=== PATIENT | male | born 1945 | race Caucasian/White ===

== ENCOUNTER 2019-05-26 18:53 | Inpatient (IN) | payer OTHER ==
[~2019-05-26] VITALS: Ht 177.8 cm; Wt 109.8 kg
--- NOTE | 2019-05-26 19:19 | NUR ---
Pt [facility] to [facility] tx [facility]. C/o cp this am on L side of chest and causing sob. Trop of 1.1 and repeat trop of 1.4 noted by [facility]. Pt tx into our care. Pt state extensive med hx in past, including mi w/ stent placement, dm, and arteriosclerotic disease. Pt States mild cp at this time and presents to ed w/ nitro past applied via [facility]. All monitoring applied. Vss. Ekg accomplished. Pa at bedside for assessment.
[2019-05-26] MEDS ORDERED: PANT20TA3 PO (19:22)
[2019-05-26] MEDS ORDERED: PANT40TA5 PO (19:22)
[2019-05-26] MEDS ORDERED: CLOP75TA PO (19:48)
[2019-05-26] MEDS ORDERED: ASPI-496 PO (19:48)
[2019-05-26] MEDS ORDERED: BRIM5DRO3 EACHEYE (19:48)
[2019-05-26] MEDS ORDERED: DICL100G25 TP (19:48)
[2019-05-26] MEDS ORDERED: ALBU0.63 NEB (19:48)
[2019-05-26] MEDS ORDERED: CARV6.252 PO (19:48)
[2019-05-26] MEDS ORDERED: DORZ10DR26 OP (19:48)
[2019-05-26] MEDS ORDERED: CHOL1CRY3 PO (19:48)
[2019-05-26] MEDS ORDERED: [UNRECOGNIZED DRUG - OTHER] (19:48)
[2019-05-26] MEDS ORDERED: AMLO10TA8 PO (19:48)
[2019-05-26] MEDS ORDERED: DEXT1DRO7 OP (19:48)
[2019-05-26] MEDS ORDERED: CYAN500L4 PO (19:48)
[2019-05-26] MEDS ORDERED: KETOROLAC OPTH OP (19:49)
[2019-05-26] MEDS ORDERED: [UNRECOGNIZED DRUG - CODE] PO (19:49)
[2019-05-26] MEDS ORDERED: MAGN420T PO (19:49)
[2019-05-26] MEDS ORDERED: LOSA1TAB19 PO (19:49)
[2019-05-26] MEDS ORDERED: FINA5TAB4 PO (19:49)
[2019-05-26] MEDS ORDERED: METH500T7 PO (19:49)
[2019-05-26] MEDS ORDERED: INSU100V8 SQ (19:49)
[2019-05-26] MEDS ORDERED: FENO145T32 PO (19:49)
[2019-05-26] MEDS ORDERED: METF500T17 PO (19:49)
[2019-05-26] MEDS ORDERED: EZET10TA70 PO (19:49)
[2019-05-26] MEDS ORDERED: PREG225C PO (19:53)
[2019-05-26] MEDS ORDERED: NITR1PAT24 TD (19:53)
[2019-05-26] MEDS ORDERED: ROPI1TAB2 PO (19:53)
[2019-05-26] MEDS ORDERED: SEMA1PEN INJ (19:53)
[2019-05-26] MEDS ORDERED: HEPARIN 25,000 UNITS/500ML PMX 500 ML IV PRN ×2 (20:00)
[2019-05-26] MEDS ORDERED: HEPARIN 5,000 UNITS/ML, 1ML IV PRN ×2 (20:00)
[2019-05-26] MEDS ORDERED: HEPARIN 5,000 UNITS/ML, 1ML IV ONE ×2 (20:00)
--- NOTE | 2019-05-26 20:26 | NUR ---
TROP 0.319
[2019-05-26 20:27] LABS: TROPONIN I 0.319 ng/mL (0.000-0.045)
[2019-05-26] MEDS ORDERED: HEPARIN 25,000 UNITS/500ML PMX 500 ML ONE (20:27)
[2019-05-26] MEDS ORDERED: HEPARIN 5,000 UNITS/ML, 1ML ONE (20:27)
[2019-05-26] MEDS ORDERED: ACETAMINOPHEN 325 MG TABLET PO PRN (22:00)
[2019-05-26] MEDS ORDERED: ONDANSETRON 2MG/ML, 2ML IVPush PRN (22:00)
[2019-05-26] MEDS ORDERED: hydrALAzine 20 MG/ML, 1ML IVPush PRN (22:00)
[2019-05-26] MEDS ORDERED: morphine SULFATE 10 MG/ML, 1ML IVPush PRN (22:00)
[2019-05-26 22:12] LABS: HEMOGLOBIN A1C 7.2 % (4.2-6.3)
[2019-05-26 22:24] VITALS: BP 150/82
[2019-05-26] MEDS ORDERED: ALBUTEROL SULFATE 2.5 MG/3 ML NPPB PRN (23:30)
[2019-05-26] MEDS: CARVEDILOL 6.25 MG TABLET PO SCH (23:59)
[2019-05-26] MEDS: ROPINIROLE 1MG TABLET PO SCH (23:59)
[2019-05-26] MEDS: EZETIMIBE 10 MG TABLET PO SCH (23:59)
[2019-05-26] MEDS: METHOCARBAMOL 500 MG TABLET PO SCH (23:59)
[2019-05-27] MEDS: INSULIN GLARGINE 100 UNITS/ML, PEN SQ-INSULIN SCH ×2 (00:02→21:06)
[2019-05-27 01:22] VITALS: BP 147/84
[2019-05-27 02:43] LABS: BASOPHILS # (AUTO) 0.04 x10^3/uL (0-0.1); BASOPHILS % (AUTO) 1 % (0-1); EOSINOPHILS # (AUTO) 0.25 x10^3/uL (0-0.4); EOSINOPHILS % (AUTO) 5 % (1-7); LYMPHOCYTES # (AUTO) 2.02 x10^3/uL (1-3.4); LYMPHOCYTES % (AUTO) 42 % (22-44); MD NO; MEAN CORPUSCULAR HEMOGLOBIN 31.8 pg (27.5-34.5); MEAN CORPUSCULAR HGB CONC 33.2 g/dL (33.2-36.2); MEAN CORPUSCULAR VOLUME 95.9 fL (81-97); MONOCYTES # (AUTO) 0.32 x10^3/uL (0.2-0.8); MONOCYTES % (AUTO) 7 % (2-9); NEUTROPHILS # (AUTO) 2.24 x10^3/uL (1.8-6.8); NEUTROPHILS % (AUTO) 46 % (42-75); PLATELET COUNT 149 x10^3/uL (130-400); RED BLOOD COUNT 4.25 x10^6/uL (4.38-5.82); RED CELL DISTRIBUTION WIDTH 15.3 % (9.4-14.8)
[2019-05-27 02:56] LABS: ALBUMIN 3.3 g/dL (3.4-5.0); ANION GAP 7 mmol/L (5-15); CALCIUM 9.2 mg/dL (8.5-10.1); CHLORIDE 113 mmol/L (98-107); CHOLESTEROL, TOTAL 173 mg/dL (140-239)
[2019-05-27 03:02] LABS: ALANINE AMINOTRANSFERASE 23 U/L (12-78); ALKALINE PHOSPHATASE 62 U/L (45-117); BILIRUBIN,TOTAL 0.3 mg/dL (0.2-1.0); CREATININE 1.17 mg/dL (0.7-1.3); HDL CHOL % 25 % (26-37); HDL CHOLESTEROL (DIRECT) 43 mg/dL (40-60); LDL CHOLESTEROL,CALCULATED 103 mg/dL (54-169); LDL/HDL RATIO 2.4 (0.5-3.0); TOTAL PROTEIN 6.5 g/dL (6.4-8.2); TRIGLYCERIDES 134 mg/dL (50-200); TROPONIN I 0.362 ng/mL (0.000-0.045); VLDL CHOLESTEROL 27 mg/dL (0-25)
[2019-05-27] MEDS: INSULIN LISPRO 100 UNITS/ML, PEN SQ-INSULIN SCH ×4 (07:00→21:00)
[2019-05-27 08:43] VITALS: BP 148/83
[2019-05-27] MEDS: METHOCARBAMOL 500 MG TABLET PO SCH ×4 (08:47→21:07)
[2019-05-27] MEDS: HYDROCHLOROTHIAZIDE 12.5 MG CAPSULE PO SCH (08:47)
[2019-05-27] MEDS: FENOFIBRATE 145 MG TABLET PO SCH (08:47)
[2019-05-27] MEDS: PREGABALIN 75 MG CAPSULE PO SCH (08:47)
[2019-05-27] MEDS: ASPIRIN 81 MG TABLET EC PO SCH (08:47)
[2019-05-27] MEDS: FINASTERIDE 5 MG TABLET PO SCH (08:48)
[2019-05-27] MEDS: CLOPIDOGREL 75 MG TABLET PO SCH (08:48)
[2019-05-27] MEDS: CARVEDILOL 6.25 MG TABLET PO SCH ×2 (08:48→21:00)
[2019-05-27] MEDS: PANTOPRAZOLE 20MG TABLET PO SCH (08:48)
[2019-05-27] MEDS: AMLODIPINE 10 MG TAB PO SCH (08:48)
[2019-05-27] MEDS: LOSARTAN 50MG TABLET PO SCH (08:48)
[2019-05-27] MEDS: DORZOLAMIDE OPHTH 2%, 10ML OP SCH ×3 (08:48→21:06)
[2019-05-27 08:51] LABS: TROPONIN I 0.313 ng/mL (0.000-0.045)
[2019-05-27] MEDS: NITROGLYCERIN 0.4 MG/HR PATCH TD SCH (09:00)
[2019-05-27] MEDS ORDERED: REGADENOSON 0.4 MG/5 ML SYRINGE ONE (10:16)
[2019-05-27 14:54] VITALS: BP 126/81
[2019-05-27 20:04] VITALS: BP 141/85
[2019-05-27] MEDS: EZETIMIBE 10 MG TABLET PO SCH (21:07)
[2019-05-27] MEDS: ROPINIROLE 1MG TABLET PO SCH (21:07)
[2019-05-27] MEDS: HEPARIN 5,000 UNITS/ML, 1ML SQ SCH (21:07)
[2019-05-28] MEDS ORDERED: FLU VACC QS2019-20 36MOS UP/PF 0.5 ML IM-VACC ONE (02:30)
[2019-05-28 03:02] VITALS: BP 120/81
[2019-05-28] MEDS: HEPARIN 5,000 UNITS/ML, 1ML SQ SCH ×3 (05:42→20:47)
[2019-05-28] MEDS: METHOCARBAMOL 500 MG TABLET PO SCH ×4 (05:42→20:46)
[2019-05-28 07:49] VITALS: BP 139/77
[2019-05-28] MEDS: INSULIN LISPRO 100 UNITS/ML, PEN SQ-INSULIN SCH ×4 (08:51→20:55)
[2019-05-28] MEDS: PANTOPRAZOLE 20MG TABLET PO SCH (08:52)
[2019-05-28] MEDS: FENOFIBRATE 145 MG TABLET PO SCH (08:52)
[2019-05-28] MEDS: ASPIRIN 81 MG TABLET EC PO SCH (08:52)
[2019-05-28] MEDS: DORZOLAMIDE OPHTH 2%, 10ML OP SCH ×2 (08:52→20:47)
[2019-05-28] MEDS: HYDROCHLOROTHIAZIDE 12.5 MG CAPSULE PO SCH (08:52)
[2019-05-28] MEDS: PREGABALIN 75 MG CAPSULE PO SCH ×2 (08:52→20:46)
[2019-05-28] MEDS: AMLODIPINE 10 MG TAB PO SCH (08:53)
[2019-05-28] MEDS: CLOPIDOGREL 75 MG TABLET PO SCH (08:53)
[2019-05-28] MEDS: LOSARTAN 50MG TABLET PO SCH (08:53)
[2019-05-28] MEDS: NITROGLYCERIN 0.4 MG/HR PATCH TD SCH (08:58)
[2019-05-28] MEDS: CARVEDILOL 6.25 MG TABLET PO SCH ×2 (08:59→20:46)
[2019-05-28] MEDS: FINASTERIDE 5 MG TABLET PO SCH (09:55)
[2019-05-28] MEDS ORDERED: SODIUM CHLORIDE 0.9% 1,000 ML IV SCH (11:00)
[2019-05-28 14:00] VITALS: BP 119/65
[2019-05-28 18:48] VITALS: BP 125/81
[2019-05-28] MEDS: ROPINIROLE 1MG TABLET PO SCH (20:45)
[2019-05-28] MEDS: EZETIMIBE 10 MG TABLET PO SCH (20:46)
[2019-05-28] MEDS: INSULIN GLARGINE 100 UNITS/ML, PEN SQ-INSULIN SCH (21:01)
[2019-05-29 01:40] VITALS: BP 144/91
[2019-05-29 02:00] VITALS: BP 150/107
[2019-05-29] MEDS: HEPARIN 5,000 UNITS/ML, 1ML SQ SCH ×3 (05:49→20:42)
[2019-05-29] MEDS: METHOCARBAMOL 500 MG TABLET PO SCH ×4 (05:49→20:42)
[2019-05-29 06:55] VITALS: BP 135/84
[2019-05-29] MEDS: INSULIN LISPRO 100 UNITS/ML, PEN SQ-INSULIN SCH ×4 (07:00→20:59)
[2019-05-29] MEDS: AMLODIPINE 10 MG TAB PO SCH (07:25)
[2019-05-29] MEDS: CARVEDILOL 6.25 MG TABLET PO SCH ×2 (07:26→20:42)
[2019-05-29] MEDS ORDERED: MIDAZOLAM 1 MG/ML, 5ML ONE (12:54)
[2019-05-29] MEDS ORDERED: TICAGRELOR 90 MG TABLET ONE (12:55)
[2019-05-29] MEDS ORDERED: BIVALIRUDIN 250 MG ONE ×2 (12:55→13:47)
[2019-05-29] MEDS ORDERED: LIDOCAINE 2%, 20ML ONE (12:55)
[2019-05-29] MEDS ORDERED: FENTANYL PF 100 MCG/2ML ONE (12:55)
[2019-05-29] MEDS: LOSARTAN 50MG TABLET PO SCH (14:00)
[2019-05-29] MEDS: PANTOPRAZOLE 20MG TABLET PO SCH (14:00)
[2019-05-29] MEDS: CLOPIDOGREL 75 MG TABLET PO SCH (14:00)
[2019-05-29] MEDS ORDERED: CLOPIDOGREL 300 MG TABLET ONE (14:06)
[2019-05-29] MEDS: FENOFIBRATE 145 MG TABLET PO SCH (14:58)
[2019-05-29] MEDS: ASPIRIN 81 MG TABLET EC PO SCH (14:58)
[2019-05-29] MEDS: HYDROCHLOROTHIAZIDE 12.5 MG CAPSULE PO SCH (14:59)
[2019-05-29 15:05] VITALS: BP 134/70
[2019-05-29] MEDS: DORZOLAMIDE OPHTH 2%, 10ML OP SCH ×2 (15:13→20:58)
[2019-05-29] MEDS: FINASTERIDE 5 MG TABLET PO SCH (15:22)
[2019-05-29] MEDS: NITROGLYCERIN 0.4 MG/HR PATCH TD SCH (15:26)
[2019-05-29] MEDS: PREGABALIN 75 MG CAPSULE PO SCH ×2 (15:32→20:42)
[2019-05-29] MEDS ORDERED: BIVALIRUDIN 250 MG in SODIUM CHLORIDE 0.9% 50 ML IV SCH (15:38)
[2019-05-29 19:14] VITALS: BP 113/62
[2019-05-29] MEDS: ROPINIROLE 1MG TABLET PO SCH (20:42)
[2019-05-29] MEDS: EZETIMIBE 10 MG TABLET PO SCH (20:42)
[2019-05-29] MEDS: INSULIN GLARGINE 100 UNITS/ML, PEN SQ-INSULIN SCH (20:59)
[2019-05-29 23:06] LABS: TROPONIN I 0.374 ng/mL (0.000-0.045)
[2019-05-30 01:43] VITALS: BP 114/73
[2019-05-30 05:01] LABS: ANION GAP 5 mmol/L (5-15); CALCIUM 8.9 mg/dL (8.5-10.1); CHLORIDE 109 mmol/L (98-107); CREATININE 1.34 mg/dL (0.7-1.3)
[2019-05-30] MEDS: METHOCARBAMOL 500 MG TABLET PO SCH ×2 (05:27→11:30)
[2019-05-30] MEDS: HEPARIN 5,000 UNITS/ML, 1ML SQ SCH (05:27)
[2019-05-30] MEDS: INSULIN LISPRO 100 UNITS/ML, PEN SQ-INSULIN SCH ×2 (07:00→11:00)
[2019-05-30 07:41] VITALS: BP 113/74
[2019-05-30] MEDS: DORZOLAMIDE OPHTH 2%, 10ML OP SCH (09:00)
[2019-05-30] MEDS: HYDROCHLOROTHIAZIDE 12.5 MG CAPSULE PO SCH (09:00)
[2019-05-30] MEDS: AMLODIPINE 10 MG TAB PO SCH (09:00)
[2019-05-30 09:28] VITALS: BP 112/65
[2019-05-30] MEDS: NITROGLYCERIN 0.4 MG/HR PATCH TD SCH (10:06)
[2019-05-30] MEDS: FINASTERIDE 5 MG TABLET PO SCH (10:06)
[2019-05-30] MEDS: CLOPIDOGREL 75 MG TABLET PO SCH (10:06)
[2019-05-30] MEDS: PREGABALIN 75 MG CAPSULE PO SCH (10:07)
[2019-05-30] MEDS: PANTOPRAZOLE 20MG TABLET PO SCH (10:07)
[2019-05-30] MEDS: FENOFIBRATE 145 MG TABLET PO SCH (10:07)
[2019-05-30] MEDS: CARVEDILOL 6.25 MG TABLET PO SCH (10:07)
[2019-05-30] MEDS: ASPIRIN 81 MG TABLET EC PO SCH (10:07)
[2019-05-30] MEDS: LOSARTAN 50MG TABLET PO SCH (10:08)
== END 2019-05-30 12:40 | disposition home or self-care (01) | DRG 246 ==
LOC: ED 20:04 → EDIP 20:45 → 5SO 21:50 → DCLOUNGE 05-30 12:31
PROVIDERS: ADMIT Family Medicine; ATTEND Family Medicine
PROC: 4A023N7 Measurement of Cardiac Sampling and Pressure, Left Heart, Percutaneous Approach (ICD-10-PCS; principal; 2019-05-29)
PROC: 027034Z Dilation of Coronary Artery, One Artery with Drug-eluting Intraluminal Device, Percutaneous Approach (ICD-10-PCS; 2019-05-29)
PROC: B211YZZ Fluoroscopy of Multiple Coronary Arteries using Other Contrast (ICD-10-PCS; 2019-05-29)
PROC: B218YZZ Fluoroscopy of Left Internal Mammary Bypass Graft using Other Contrast (ICD-10-PCS; 2019-05-29)
PROC: B212YZZ Fluoroscopy of Single Coronary Artery Bypass Graft using Other Contrast (ICD-10-PCS; 2019-05-29)
PROC: B215YZZ Fluoroscopy of Left Heart using Other Contrast (ICD-10-PCS; 2019-05-29)
DX: T82.858A Stenosis of other vascular prosthetic devices, implants and grafts, initial encounter (principal); I21.4 Non-ST elevation (NSTEMI) myocardial infarction; I25.110 Atherosclerotic heart disease of native coronary artery with unstable angina pectoris; I42.9 Cardiomyopathy, unspecified; E11.22 Type 2 diabetes mellitus with diabetic chronic kidney disease; E11.40 Type 2 diabetes mellitus with diabetic neuropathy, unspecified; E66.01 Morbid (severe) obesity due to excess calories; Z68.34 Body mass index [BMI] 34.0-34.9, adult; E78.5 Hyperlipidemia, unspecified; F32.9 Major depressive disorder, single episode, unspecified; F43.12 Post-traumatic stress disorder, chronic; X58.XXXA Exposure to other specified factors, initial encounter; Y93.89 Activity, other specified; Y92.89 Other specified places as the place of occurrence of the external cause; Y99.8 Other external cause status; G47.33 Obstructive sleep apnea (adult) (pediatric); H40.059 Ocular hypertension, unspecified eye; Z88.8 Allergy status to other drugs, medicaments and biological substances; Z88.6 Allergy status to analgesic agent; I13.10 Hypertensive heart and chronic kidney disease without heart failure, with stage 1 through stage 4 chronic kidney disease, or unspecified chronic kidney disease; J44.9 Chronic obstructive pulmonary disease, unspecified; K21.9 Gastro-esophageal reflux disease without esophagitis; K42.9 Umbilical hernia without obstruction or gangrene; K57.90 Diverticulosis of intestine, part unspecified, without perforation or abscess without bleeding; K64.9 Unspecified hemorrhoids; N18.3 Chronic kidney disease, stage 3 (moderate); N40.0 Benign prostatic hyperplasia without lower urinary tract symptoms; Z79.4 Long term (current) use of insulin; Z85.51 Personal history of malignant neoplasm of bladder; Z87.891 Personal history of nicotine dependence; Z96.1 Presence of intraocular lens; Y83.2 Surgical operation with anastomosis, bypass or graft as the cause of abnormal reaction of the patient, or of later complication, without mention of misadventure at the time of the procedure; Z79.82 Long term (current) use of aspirin; I07.1 Rheumatic tricuspid insufficiency
CPT/HCPCS: 36415; 93017; 93459; 93571; 96374; 99285; C9604; J3490; 78452; 80048; 80053; 80061; 82962; 83036; 84484; 85025; 85520; 90686; 93005; 93306; 94660; 99156; 99157; C1760; C1894; G0378; J0583; J1644; J2250; J2785; J3010; A9502; C1725; C1769; C1874; C9898; J1815; J2270; Q9967